=== PATIENT | female | born 1960 | race Caucasian/White ===

== ENCOUNTER 2020-04-21 12:07 | Emergency (ER) | payer BC, MEDICAID ==
[~2020-04-21] VITALS: Ht 160 cm; Wt 113.4 kg
[~2020-04-21 12:07] MED LIST: CETI10CH3 PO; LISI-646; LORA-340; POTATAB; PRILOSEC PO; TRIA25CA
[2020-04-21] MEDS ORDERED: cloNIDine HCL 0.1 MG TAB PO ONE (12:45)
[2020-04-21] MEDS ORDERED: ASPirin 81 mg TAB PO ONE (13:00)
[2020-04-21 13:59] LABS: Basophils # (auto) 0 10 ^3/uL (0-0.2); Basophils % (auto) 0.3 % (0.0-2.0); Eosinophils # (auto) 0.3 10 ^3/uL (0-0.8); Eosinophils % (auto) 4.8 % (0.0-7.0); Hematocrit 42.2 % (36.0-46.0); Hemoglobin 13.9 g/dL (12.2-16.2); Lymphocytes # (auto) 1.8 10 ^3/uL (0.4-5.4); Lymphocytes % (auto) 28.4 % (10.0-50.0); Mean Corpuscular Hemoglobin 28.4 pg (28.0-32.0); Monocytes # (auto) 0.4 10 ^3/uL (0-1.3); Monocytes % (auto) 7.1 % (0.0-12.0); Neutrophils # (auto) 3.7 10 ^3/uL (1.6-8.6); Neutrophils % (auto) 59.4 % (37.0-80.0); Nucleated Red Blood Cells % 0.2 %; Platelet Count (auto) 256 10^3/uL (140-450); Red Cell Distribution Width 14.8 % (11.8-14.3); White Blood Cell 6.2 10^3/uL (4.4-10.8)
[2020-04-21 14:12] LABS: INR 1.02 (0.9-1.15); Partial Thromboplastin Time 25.8 sec (23.0-31.2)
[2020-04-21 14:17] LABS: Calcium 8.3 mg/dL (8.5-10.1); Chloride 104 mmol/L (98-107); Potassium 4.1 mmol/L (3.5-5.1); Sodium 134 mmol/L (136-145)
[2020-04-21 14:26] LABS: Alanine Aminotransferase 90 U/L (13-56); Albumin 3.1 g/dL (3.4-5.0); Alkaline Phosphatase 142 U/L (45-117); Anion Gap 3 (5-15); Aspartate Aminotransferase 68 U/L (15-37); BUN/Creatinine Ratio 11.5; Bilirubin, Total 0.3 mg/dL (0.2-1.0); Blood Urea Nitrogen 9 mg/dL (7-18); Carbon Dioxide 27 mmol/L (21-32); GFR African American 97 mL/min; GFR Non-African American 80 mL/min; Glucose 352 mg/dL (74-106); Total Protein 7.1 g/dL (6.4-8.2)
[2020-04-21] MEDS ORDERED: IOHEXOL 350 MG/ML 100ML IJ ONE ×2 (15:35→16:36)
[2020-04-21] MEDS ORDERED: TRAM50TA2 PO (16:39)
[2020-04-21 19:44] VITALS: BP 152/75
== END 2020-04-21 19:46 | disposition home or self-care (01) ==
LOC: ER 12:07
DX: R07.89 Other chest pain (principal); E11.65 Type 2 diabetes mellitus with hyperglycemia; R79.89 Other specified abnormal findings of blood chemistry; I10 Essential (primary) hypertension; E78.5 Hyperlipidemia, unspecified
CPT/HCPCS: 36415; 71045; 71275; 80053; 82962; 83735; 83880; 84443; 84484; 85025; 85379; 85610; 85730; 93005; 99285; Q9967